=== PATIENT | female | born 1985 | race Caucasian/White ===

== ENCOUNTER 2021-04-27 17:50 | Emergency (ER) | payer OTHER ==
[~2021-04-27 17:50] MED LIST: MEDROL 4MG DOSEP4 MG PO; XOFLUZA20 MG PO; ZPAK PO
[2021-04-27 19:30] LABS: BASOPHIL 0.4 % (0-2); EOSINOPHIL 0.2 % (0-5); HCT 37.8 % (37.0-47.0); HGB 12.5 g/dl (12.5-16.0); LYMPHOCYTE 41.9 % (15-48); MCH 30.9 pg (25.0-31.0); MCHC 33.1 g/dL (32.0-36.0); MCV 93.3 fL (78.0-100.0); MONOCYTE 13.5 % (0-12); MPV 10.6 fL (6.0-9.5); NEUTROPHIL 43.8 % (41-80); NRBC 0; PLT 173 K/uL (150-400); RBC 4.05 M/uL (4.20-5.40); RDW 12.3 % (11.5-14.0); WBC 4.6 K/uL (4.0-10.5)
[2021-04-27 19:51] LABS: ALBUMIN 3.8 g/dL (3.4-5.0); BILIRUBIN - TOTAL 0.5 mg/dL (0.2-1.0); BUN/CREAT RATIO (CALC) 16.9 RATIO; CREATININE 0.83 mg/dL (0.51-0.95); GLOBULIN (CALCULATION) 3.4 g/dL; POTASSIUM 3.2 mmol/L (3.5-5.1); TOTAL PROTEIN 7.2 g/dL (6.4-8.2)
[2021-04-27] MEDS ORDERED: PREDNISONE 20MG20 MG PO (20:06)
== END 2021-04-27 22:34 | disposition home or self-care (01) ==
LOC: FER 17:50
PROVIDERS: Emergency Medicine
DX: U07.1 COVID-19 (principal); J45.901 Unspecified asthma with (acute) exacerbation; Z23 Encounter for immunization; Z88.0 Allergy status to penicillin; Z88.1 Allergy status to other antibiotic agents
CPT/HCPCS: 36415; 36600; 71045; 80053; 82803; 83735; 84484; 85025; 85379; 94640; 94664; J2930; J7030; M0245; Q0245